=== PATIENT | male | born 1995 | race Two or more races ===

== ENCOUNTER 2017-07-14 23:35 | Emergency (ER) | payer OTHER ==
[~2017-07-14] VITALS: Ht 162.6 cm; Wt 68.0 kg
[2017-07-15] MEDS ORDERED: NORFLEX100MG PO (02:41)
[2017-07-15] MEDS ORDERED: KETO10TA2 PO (02:41)
== END 2017-07-15 02:53 | disposition home or self-care (01) ==
LOC: ER 23:35
DX: R07.89 Other chest pain (principal); R20.2 Paresthesia of skin

== ENCOUNTER 2017-09-18 00:25 | Emergency (ER) | payer OTHER ==
[~2017-09-18] VITALS: Ht 162.6 cm; Wt 68.0 kg
[~2017-09-18 00:25] MED LIST: KETO10TA2 PO; NORFLEX100MG PO
[2017-09-18] MEDS ORDERED: ZYNCOF 20-400120 ML PO (04:33)
[2017-09-18] MEDS ORDERED: DOLOGESIC 500-1 EACH PO (04:33)
[2017-09-18] MEDS ORDERED: PHENAGIL CH TA1 EACH PO (04:33)
[2017-09-19] MEDS ORDERED: ZITHROMAX500 MG PO (08:49)
[2017-09-19] MEDS ORDERED: MUCINEX DM ER1 EAC1 PO (08:49)
[2017-09-19] MEDS ORDERED: FLONASE ALLERG9.9 ML NASAL (08:49)
[2017-09-19] MEDS ORDERED: KETO10TA2 PO (08:49)
== END 2017-09-18 04:49 ==
LOC: ER 00:25
DX: J06.9 Acute upper respiratory infection, unspecified (principal)

== ENCOUNTER 2017-09-19 01:45 | Emergency (ER) | payer OTHER ==
[~2017-09-19] VITALS: Ht 162.6 cm; Wt 68.0 kg
[~2017-09-19 01:45] MED LIST changes: +DOLOGESIC 500-1 EACH PO; +PHENAGIL CH TA1 EACH PO; +ZYNCOF 20-400120 ML PO
[2017-09-19] MEDS ORDERED: FLONASE ALLERG9.9 ML NASAL (08:49)
[2017-09-19] MEDS ORDERED: MUCINEX DM ER1 EAC1 PO (08:49)
[2017-09-19] MEDS ORDERED: KETO10TA2 PO (08:49)
[2017-09-19] MEDS ORDERED: ZITHROMAX500 MG PO (08:49)
== END 2017-09-19 09:03 | disposition home or self-care (01) ==
LOC: ER 01:45
DX: J32.8 Other chronic sinusitis (principal); J06.9 Acute upper respiratory infection, unspecified

== ENCOUNTER 2018-09-22 19:50 | Emergency (ER) | payer OTHER ==
[~2018-09-22] VITALS: Ht 162.6 cm; Wt 65.8 kg
[~2018-09-22 19:50] MED LIST changes: +FLONASE ALLERG9.9 ML NASAL; +MUCINEX DM ER1 EAC1 PO; +ZITHROMAX500 MG PO
== END 2018-09-22 22:17 | disposition home or self-care (01) ==
LOC: ER 19:50
DX: K29.70 Gastritis, unspecified, without bleeding (principal)